=== PATIENT | female | born 1940 | race Caucasian/White ===

== ENCOUNTER 2017-05-07 10:15 | Outpatient (CLI) | payer OTHER | END 2017-05-07 10:20 | disposition home or self-care (01) | LOC: TOM 10:15 | DX: R10.9 Unspecified abdominal pain (principal) ==

== ENCOUNTER 2017-06-02 09:24 | Outpatient (CLI) | payer OTHER | END 2017-06-02 09:33 | disposition home or self-care (01) | LOC: RAD 501 09:24 | DX: M54.6 Pain in thoracic spine (principal); M54.5 Low back pain ==

== ENCOUNTER → 2017-07-07 10:30 | Outpatient (CLI) | payer OTHER | END | disposition home or self-care (01) | LOC: SONOGRAMA 10:30 | DX: M25.511 Pain in right shoulder (principal) ==

== ENCOUNTER → 2017-07-07 10:30 | Outpatient (CLI) | payer OTHER | END | disposition home or self-care (01) | LOC: MRI 09:15 | DX: M50.120 Mid-cervical disc disorder, unspecified level (principal) | CPT/HCPCS: 72141 ==

== ENCOUNTER 2017-07-29 08:56 | Outpatient (CLI) | payer OTHER | END 2017-07-29 17:00 | disposition home or self-care (01) | LOC: SONOGRAMA 08:56 | DX: S36.09XA Other injury of spleen, initial encounter (principal) ==

== ENCOUNTER 2018-05-25 10:08 | Outpatient (CLI) | payer OTHER | END 2018-05-25 12:17 | disposition home or self-care (01) | LOC: MRI 10:08 | DX: M25.572 Pain in left ankle and joints of left foot (principal); M25.472 Effusion, left ankle; M25.561 Pain in right knee; M25.562 Pain in left knee; M54.5 Low back pain | CPT/HCPCS: 72148 ==

== ENCOUNTER 2018-06-14 07:56 | Outpatient (CLI) | payer OTHER | END 2018-06-14 17:00 | disposition home or self-care (01) | LOC: RAD 07:56 | DX: R07.89 Other chest pain (principal) ==

== ENCOUNTER 2019-03-07 09:21 | Outpatient (CLI) | payer OTHER | END 2019-03-07 09:30 | disposition home or self-care (01) | LOC: MAMO-SONO 09:21 | DX: Z12.31 Encounter for screening mammogram for malignant neoplasm of breast (principal); Z87.898 Personal history of other specified conditions; I11.9 Hypertensive heart disease without heart failure; E11.9 Type 2 diabetes mellitus without complications; E78.89 Other lipoprotein metabolism disorders; Z01.810 Encounter for preprocedural cardiovascular examination; M54.42 Lumbago with sciatica, left side; M16.11 Unilateral primary osteoarthritis, right hip; M25.371 Other instability, right ankle; Z79.84 Long term (current) use of oral hypoglycemic drugs; Z79.01 Long term (current) use of anticoagulants; Z12.11 Encounter for screening for malignant neoplasm of colon ==

== ENCOUNTER 2019-09-08 08:40 | Outpatient (CLI) | payer OTHER | END 2019-09-08 15:00 | disposition home or self-care (01) | LOC: LAB 08:40 | DX: I11.9 Hypertensive heart disease without heart failure (principal); E11.9 Type 2 diabetes mellitus without complications; E78.89 Other lipoprotein metabolism disorders; M54.5 Low back pain; Z01.810 Encounter for preprocedural cardiovascular examination; M16.11 Unilateral primary osteoarthritis, right hip; M25.371 Other instability, right ankle; Z79.84 Long term (current) use of oral hypoglycemic drugs; Z79.01 Long term (current) use of anticoagulants; Z12.31 Encounter for screening mammogram for malignant neoplasm of breast; Z12.11 Encounter for screening for malignant neoplasm of colon ==

== ENCOUNTER → 2019-09-08 | Outpatient (CLI) | payer OTHER | END | disposition home or self-care (01) | LOC: TOM 09:14 | DX: G45.8 Other transient cerebral ischemic attacks and related syndromes (principal); I11.9 Hypertensive heart disease without heart failure; E11.9 Type 2 diabetes mellitus without complications; E78.89 Other lipoprotein metabolism disorders; Z01.810 Encounter for preprocedural cardiovascular examination; M54.42 Lumbago with sciatica, left side; M16.11 Unilateral primary osteoarthritis, right hip; M25.371 Other instability, right ankle; Z79.84 Long term (current) use of oral hypoglycemic drugs; Z79.01 Long term (current) use of anticoagulants; G45.9 Transient cerebral ischemic attack, unspecified; Z12.31 Encounter for screening mammogram for malignant neoplasm of breast | CPT/HCPCS: 70470; Q9965 ==

== ENCOUNTER → 2019-10-10 | Outpatient (CLI) | payer OTHER | END | disposition home or self-care (01) | LOC: RAD 10:54 | PROVIDERS: ATTEND Orthopaedic Surgery | DX: M54.5 Low back pain (principal); M25.561 Pain in right knee; M25.562 Pain in left knee ==

== ENCOUNTER 2020-08-07 10:23 | Outpatient (CLI) | payer OTHER | END 2020-08-07 10:41 | disposition home or self-care (01) | LOC: MAMO-SONO 10:23 | PROVIDERS: ATTEND Internal Medicine | DX: Z12.31 Encounter for screening mammogram for malignant neoplasm of breast (principal); I11.9 Hypertensive heart disease without heart failure; Z87.898 Personal history of other specified conditions; E11.9 Type 2 diabetes mellitus without complications; E78.89 Other lipoprotein metabolism disorders; M54.5 Low back pain; Z01.810 Encounter for preprocedural cardiovascular examination; M16.11 Unilateral primary osteoarthritis, right hip; M25.371 Other instability, right ankle; Z79.84 Long term (current) use of oral hypoglycemic drugs; Z79.01 Long term (current) use of anticoagulants; G45.8 Other transient cerebral ischemic attacks and related syndromes ==

== ENCOUNTER 2020-08-28 14:34 | Outpatient (CLI) | payer OTHER | END 2020-08-28 14:38 | disposition home or self-care (01) | LOC: NUCLEAR 14:34 | PROVIDERS: ATTEND Internal Medicine | DX: M54.42 Lumbago with sciatica, left side (principal); M25.371 Other instability, right ankle; M81.0 Age-related osteoporosis without current pathological fracture ==

== ENCOUNTER 2021-01-10 08:00 | Outpatient (CLI) | payer OTHER | END 2021-01-10 08:30 | disposition home or self-care (01) | LOC: PPH VACUNA 08:00 | PROVIDERS: ATTEND Emergency Medicine Pediatric Emergency Medicine | DX: Z23 Encounter for immunization (principal) ==

== ENCOUNTER 2021-02-26 10:12 | Outpatient (CLI) | payer OTHER | END 2021-02-26 10:32 | disposition home or self-care (01) | LOC: RAD 10:12 | PROVIDERS: ATTEND Orthopaedic Surgery | DX: M25.561 Pain in right knee (principal); M25.562 Pain in left knee ==

== ENCOUNTER 2021-03-11 10:11 | Outpatient (CLI) | payer OTHER | END 2021-03-11 10:27 | disposition home or self-care (01) | LOC: RAD 10:11 | PROVIDERS: ATTEND Orthopaedic Surgery | DX: R07.89 Other chest pain (principal) ==

== ENCOUNTER 2021-03-20 09:00 | Inpatient (IN) | payer OTHER ==
[~2021-03-20] VITALS: Ht 154.9 cm; Wt 68.0 kg
[2021-03-20] MEDS ORDERED: SIMVAST PO (10:45)
[2021-03-20] MEDS ORDERED: LEXAPRO20 MG PO (10:46)
[2021-03-20] MEDS ORDERED: [UNRECOGNIZED DRUG - OTHER] PO (10:46)
[2021-03-20] MEDS ORDERED: [UNRECOGNIZED DRUG - OTHER] PO (10:47)
[2021-03-25] MEDS ORDERED: SUCRALFATE1 GM (07:51)
[2021-03-25] MEDS ORDERED: IRBESARTAN75 MG (07:51)
[2021-03-25] MEDS ORDERED: SIMVASTATIN20 MG (07:51)
[2021-03-25] MEDS ORDERED: ENALAPRIL MALEAT5 MG (07:51)
[2021-03-25] MEDS ORDERED: GLIMEPIRIDE2 M1 (07:51)
== END 2021-03-27 18:06 | DRG 470 ==
LOC: SURH 03-25 05:38 → O/R 03-25 05:38 → SURH 03-25 09:00
PROVIDERS: ADMIT Orthopaedic Surgery; ATTEND Orthopaedic Surgery
PROC: 0SRC0J9 Replacement of Right Knee Joint with Synthetic Substitute, Cemented, Open Approach (ICD-10-PCS; principal; 2021-03-25 10:15)
DX: M17.11 Unilateral primary osteoarthritis, right knee (principal); D62 Acute posthemorrhagic anemia

== ENCOUNTER 2021-06-04 09:43 | Outpatient (CLI) | payer OTHER ==
[~2021-06-04 09:43] MED LIST: ENALAPRIL MALEAT5 MG; GLIMEPIRIDE2 M1; IRBESARTAN75 MG; LEXAPRO20 MG PO; SIMVAST PO; SIMVASTATIN20 MG; SUCRALFATE1 GM; [UNRECOGNIZED DRUG - OTHER] PO; [UNRECOGNIZED DRUG - OTHER] PO
== END 2021-06-04 09:44 | disposition home or self-care (01) ==
LOC: RAD 09:43
PROVIDERS: ATTEND Orthopaedic Surgery
DX: M25.561 Pain in right knee (principal); M25.562 Pain in left knee

== ENCOUNTER 2021-10-08 10:02 | Outpatient (CLI) | payer OTHER | END 2021-10-08 10:12 | disposition home or self-care (01) | LOC: PPH VACUNA 10:02 | PROVIDERS: ATTEND Emergency Medicine Pediatric Emergency Medicine | DX: Z23 Encounter for immunization (principal) ==

== ENCOUNTER 2022-04-30 11:00 | Outpatient (CLI) | payer OTHER | END 2022-04-30 11:10 | disposition home or self-care (01) | LOC: PPH VACUNA 11:00 | PROVIDERS: ATTEND Emergency Medicine Pediatric Emergency Medicine | DX: Z23 Encounter for immunization (principal) ==

== ENCOUNTER 2022-10-09 07:07 | Outpatient (CLI) | payer OTHER | END 2022-10-09 07:09 | disposition home or self-care (01) | LOC: NUCLEAR 07:07 | PROVIDERS: ATTEND Internal Medicine | DX: I11.9 Hypertensive heart disease without heart failure (principal); E11.9 Type 2 diabetes mellitus without complications; R06.9 Unspecified abnormalities of breathing | CPT/HCPCS: 78452; 93017; A9500; J0153 ==

== ENCOUNTER 2023-03-24 08:17 | Outpatient (CLI) | payer OTHER | END 2023-03-24 08:36 | disposition home or self-care (01) | LOC: RX STUDY 08:17 | PROVIDERS: ATTEND Otolaryngology Otology & Neurotology | DX: R13.12 Dysphagia, oropharyngeal phase (principal) ==

== ENCOUNTER 2024-06-19 12:31 | Outpatient (CLI) | payer OTHER | END 2024-06-19 12:39 | disposition home or self-care (01) | LOC: RAD 12:31 | PROVIDERS: ATTEND Physical Medicine & Rehabilitation | DX: M54.59 Other low back pain (principal) ==

== ENCOUNTER 2024-08-22 09:15 | Outpatient (CLI) | payer OTHER | END 2024-08-22 09:26 | disposition home or self-care (01) | LOC: MAMO-SONO 09:15 | PROVIDERS: ATTEND Internal Medicine | DX: N64.0 Fissure and fistula of nipple (principal); Z12.31 Encounter for screening mammogram for malignant neoplasm of breast; Z13.820 Encounter for screening for osteoporosis; N39.0 Urinary tract infection, site not specified; E11.9 Type 2 diabetes mellitus without complications; E11.69 Type 2 diabetes mellitus with other specified complication ==

== ENCOUNTER → 2024-08-22 10:36 | Outpatient (CLI) | payer OTHER | END | disposition home or self-care (01) | LOC: NUCLEAR 10:36 | PROVIDERS: ATTEND Internal Medicine | DX: Z13.820 Encounter for screening for osteoporosis (principal); M81.0 Age-related osteoporosis without current pathological fracture ==

== ENCOUNTER 2024-11-06 07:55 | Outpatient (CLI) | payer OTHER | END 2024-11-06 08:06 | disposition home or self-care (01) | LOC: RAD 07:55 | PROVIDERS: ATTEND Specialist | DX: D05.11 Intraductal carcinoma in situ of right breast (principal) ==

== ENCOUNTER 2024-11-14 06:25 | Day surgery (SDC) | payer OTHER ==
[~2024-11-14 06:25] MED LIST changes: +HORIZANT300 MG PO; +PEPCID AC20 MG PO; +ZETIA10 MG PO
[2024-11-14] MEDS ORDERED: CEFAZOLIN SODIUM 1,000 MG VIAL IV ONE (10:40)
[2024-11-14] MEDS ORDERED: FAMOTIDINE/PF 20 MG/10 ML SYRINGE IV SCH (12:15)
[2024-11-14] MEDS ORDERED: CEFAZOLIN SODIUM 1,000 MG VIAL IV SCH (12:15)
[2024-11-14] MEDS ORDERED: MORPHINE SULFATE 4 MG/ML VIAL IV ONE (12:35)
== END 2024-11-14 14:35 | disposition home or self-care (01) ==
LOC: CIR.AMB 06:25
PROVIDERS: ATTEND Specialist
DX: D05.11 Intraductal carcinoma in situ of right breast (principal)

== ENCOUNTER 2024-11-30 08:13 | Outpatient (CLI) | payer OTHER | END 2024-11-30 08:27 | disposition home or self-care (01) | LOC: MRI 08:13 | PROVIDERS: ATTEND Pediatrics | DX: M25.572 Pain in left ankle and joints of left foot (principal); S93.402A Sprain of unspecified ligament of left ankle, initial encounter | CPT/HCPCS: 73721 ==